=== PATIENT | female | born 1990 | race Asian ===

== ENCOUNTER 2023-09-29 18:58 | Inpatient (IN) ==
[~2023-09-29 18:58] MED LIST: Lidocaine 1% VIAL 10 MG/ML 30 ML VIAL INJ PRN
[2023-09-29] MEDS: Dinoprostone 10 MG VAG.SUPP VAGINAL ONE (20:12)
[2023-09-29 21:23] LABS: ABS Eosinophils 0.1 10^3/uL (0.0-0.5); ABS Lymphocytes 2.6 10^3/uL (1.0-4.8); ABS Monocytes 0.8 10^3/uL (0.0-0.9); ABS Nucleated RBC 0.01 10^3/ul; Hematocrit 31.9 % (35-45); Hemoglobin 11.1 g/dL (11.5-14.3); Lymphocyte % 26.9 %; Mean Corpuscular Hemoglobin 32.1 pg (27-33); Mean Corpuscular Hgb Conc 34.7 g/dL (31-36); Mean Corpuscular Volume 92.7 fL (80-97); Mean Platelet Volume 12.2 fL (7.5-11.2); Nucleated Red Blood Cells % 0.1 %/100WBC (0.0-0.8); Platelet Count 195 10^3/uL (150-450); Red Blood Count 3.45 10^6/uL (3.63-4.92); Red Cell Distribution Width 13.7 % (12-17); White Blood Count 9.5 10^3/uL (3.8-11.8)
[2023-09-29 21:40] LABS: Albumin 3.5 g/dL (3.2-5.2); Albumin/Globulin Ratio 1.1 (1-3); Creatinine, Serum 0.5 mg/dL (0.51-0.95); Globulin 3.3 g/dL (2-4); Potassium 3.8 mmol/L (3.5-5.0); Total Bilirubin 0.3 mg/dL (0.2-1.0); Total Protein 6.8 g/dL (6.4-8.9); Uric Acid 4.3 mg/dL (2.3-6.6); eGFR CKD-EPI 126.9 (>60)
[2023-09-29 22:14] LABS: Urine Benzodiazepine Screen None Detected (None Detect); Urine Cannabinoids Screen None Detected (None Detect); Urine Opiates Screen None Detected (None Detect)
[2023-09-30] MEDS: Lactated Ringers 1000 ml BAG 1,000 ML IV ONE (05:35)
[2023-09-30] MEDS: miSOPROStol 100 mcg TAB ONE (19:33)
[2023-10-01] MEDS: Morphine 10 MG/ML VIAL (1 ml) IV ONE (01:08)
[2023-10-01] MEDS: OBEPIDURAL (200 ML) 200 ML EPIDURAL ONE (03:34)
[2023-10-01] MEDS ORDERED: Lactated Ringers 1000 ml BAG 500 ML IV PRN ×2 (03:42)
[2023-10-01] MEDS ORDERED: Sodium Citrate/Citric Acid LIQ 15 ML UDC PO PRN (03:42)
[2023-10-01] MEDS ORDERED: Famotidine IV 10 MG/ML 2 ml VIAL (20 mg) IV PRN (03:42)
[2023-10-01] MEDS ORDERED: Phenylephrine 40 mcg/mL 10mL (400mcg) SYRINGE IV PUSH PRN ×2 (03:42)
[2023-10-01 04:56] LABS: Urine Appearance Clear; Urine Bilirubin Negative (Negative); Urine Blood Trace (Negative); Urine Color Yellow; Urine Glucose Negative (Negative); Urine Ketones 2+ (Negative); Urine Nitrite Negative (Negative); Urine Protein 2+ (>=100 mg/dL) (Negative); Urine Specific Gravity 1.017 (1.002-1.030); Urine Urobilinogen Negative (Negative); Urine pH 6.5 (5.0-8.0)
[2023-10-01 06:41] LABS: Urine Bacteria Absent /HPF (Absent); Urine Red Blood Cell Absent /HPF (0-Trace); Urine Squamous Epithelial Cell Present /HPF (Absent); Urine White Blood Cell Absent /HPF (0-Trace)
[2023-10-01] MEDS ORDERED: Glycerin ADULT 2.4 gm SUPP PR PRN (09:29)
[2023-10-01] MEDS: Dibucaine 1% OINT 28.35 GM TUBE PR PRN (11:35)
[2023-10-01] MEDS: Witch Hazel PAD JAR TOPICAL PRN (11:35)
[2023-10-01] MEDS: OBEPIDURAL (200 ML) 200 ML EPIDURAL SCH (20:55)
[2023-10-01] MEDS: Oxytocin in LR 0 MILLI.UNIT/0 ML BAG IV ONE (20:55)
[2023-10-01] MEDS: Lactated Ringers 1000 ml BAG 1,000 ML IV ONE (20:55)
[2023-10-01] MEDS: Lactated Ringers 1000 ml BAG 1,000 ML IV SCH (20:55)
[2023-10-01] MEDS: Lidocaine 1.5% EPI 1:200,000 30 ML SDV ONE (20:55)
[2023-10-01] MEDS ORDERED: Measles, Mumps,Rubella VACC 0.5 ML/VIAL SUBCUT ONE (21:44)
[2023-10-02 07:03] LABS: ABS Basophils 0.1 10^3/uL (0.0-0.1); ABS Eosinophils 0.2 10^3/uL (0.0-0.5); ABS Lymphocytes 2.9 10^3/uL (1.0-4.8); ABS Monocytes 1.3 10^3/uL (0.0-0.9); ABS Neutrophils 9.7 10^3/uL (1.5-7.6); ABS Nucleated RBC 0.02 10^3/ul; Eosinophil % 1.1 %; Hematocrit 26.7 % (35-45); Hemoglobin 9.1 g/dL (11.5-14.3); Lymphocyte % 20.8 %; Mean Corpuscular Hemoglobin 31.9 pg (27-33); Mean Corpuscular Volume 93.7 fL (80-97); Mean Platelet Volume 11.6 fL (7.5-11.2); Nucleated Red Blood Cells % 0.1 %/100WBC (0.0-0.8); Platelet Count 185 10^3/uL (150-450); Red Blood Count 2.85 10^6/uL (3.63-4.92); Red Cell Distribution Width 14.4 % (12-17); White Blood Count 14.2 10^3/uL (3.8-11.8)
[2023-10-02] MEDS: Measles, Mumps,Rubella VACC 0.5 ML/VIAL SUBCUT ONE (21:20)
[2023-10-03 08:08] VITALS: BP 106/65
== END 2023-10-03 18:35 | disposition home or self-care (01) | DRG 807 ==
LOC: MCHOBOUT 18:58 → MCHOB 19:03
PROVIDERS: ADMIT Midwife; ATTEND Midwife